=== PATIENT | male | born 1960 | race Hispanic/Latino ===

== ENCOUNTER → 2017-11-26 | Outpatient (CLI) | payer OTHER ==
[~2017-11-26] MED LIST: ASPIR 8181 MG PO; ATORVASTATIN CA10 MG PO; FARXIGA PO; GLYBURIDE-METF1 EAC1 PO; IBUPROFEN400 MG PO; JANUVIA100 MG PO; LISINOPRIL10 MG PO; NATEGLINIDE120 MG PO; NORCO 10-325 T1 EACH PO; PIOGLITAZONE HC45 MG PO
--- NOTE | 2017-11-26 17:12 | Diagnostic Imaging Report ---
Left knee MRI without contrast. History: Knee pain. Medial meniscus tear. Fall. Comparison: None. Technique: Multiplanar multi-sequence MRI of the knee without contrast. Findings: Medial compartment: There is a complex medial meniscus tear involving the posterior horn and body segments. The skull tissue is displaced to the periphery. There is advanced full-thickness articular cartilage loss in the medial compartment with underlying bone marrow edema and peripheral osteophytosis. The medial collateral ligament complex is intact. Lateral compartment: There is degeneration and fraying of the lateral meniscus. No lateral meniscus tear is seen. The lateral compartmental articular cartilage surfaces are thinned with regions of fraying and fissuring. There are small peripheral marginal osteophytes. The lateral collateral ligament complex is intact. Intercondylar notch: There is a chronic appearing partial tear of the anterior cruciate ligament with scarring. The posterior cruciate ligament is intact. Patellofemoral compartment: There is articular cartilage fraying and deep fissuring in the patellofemoral compartment with mild underlying bone marrow edema. Extensor mechanism: The quadriceps tendon is intact. There is distal patellar tendinosis with a chronic appearing avulsion type fracture at the anterior proximal tibia. There is associated bone marrow edema and adjacent soft tissue edema. This is best seen on sagittal series 3 image 16. Other findings: There is a joint effusion and synovitis. There is no subluxation or avascular necrosis. IMPRESSION: Complex medial meniscus tear with advanced degenerative arthrosis in the medial compartment of the knee. Distal patellar tendinosis with chronic appearing avulsion type fracture at the anterior proximal tibia with associated bone marrow edema and adjacent soft tissue edema. Articular cartilage fraying and deep fissuring in the patellofemoral compartment with mild underlying bone marrow edema. Chronic appearing partial tear of the anterior cruciate ligament with scarring. Signed by: Dr. Anibal Gillespie M.D. on 11/26/2017 5:08 PM
== END ==
LOC: MRI 14:46
PROVIDERS: ATTEND Specialist
DX: S83.242A Other tear of medial meniscus, current injury, left knee, initial encounter (principal)

== ENCOUNTER → 2017-12-22 | Day surgery (SDC) | payer OTHER ==
[2017-12-21 11:13] LABS: ANION GAP 14.3 mmol/L (8-16); BLOOD UREA NITROGEN 17 mg/dL (7-26); BUN/CREATININE RATIO 18 (6-25); CALCIUM 9.6 mg/dL (8.4-10.2); CARBON DIOXIDE 28 mmol/L (22-29); CHLORIDE 104 mmol/L (98-107); CREATININE, SERUM 0.92 mg/dL (0.72-1.25); EST GLOMERULAR FILTRATION RATE > 60 ML/MIN (60-); GLUCOSE 158 mg/dL (74-118); POTASSIUM 5.3 mmol/L (3.5-5.1); SODIUM 141 mmol/L (136-145)
[~2017-12-22] MED LIST changes: +ACETAMINOPHEN 1000 MG/100 ML IV ONE; +BUPIVACAINE HCL 0.5% 10ML MPF VIAL INJ ONE; +CEFAZOLIN SOD 1 GM VIAL ONE; +FENTANYL CITRATE/PF 100MCG/2 ML INJ ONE; +KETOROLAC TROMETHAMINE 30 MG/ML VIAL ONE; +LIDOCAINE HCL 2% LOCAL INJ 5 ML SDV VIAL INJ ONE; +MIDAZOLAM HCL 2 MG/2 ML VIAL ONE; +ONDANSETRON HCL INJ 2 MG/ML VIAL ONE; +PROPOFOL IV EMULSION 10 MG/ML 20 ML VIAL ONE; +SEVOFLURANE INHAL SOLN 250 ML PEN BTL ONE
--- OUTSIDE RECORDS SUMMARY | 2017-12-22 09:13 | XMS REPORT ---
Author Author [facility] Address Unknown Phone Unavailable Care Team Providers Care Needlemaker Name Role Phone REBECCA AVELAR Unavailable Unavailable Problems This patient has no known problems. Allergies, Adverse Reactions, Alerts This patient has no known allergies or adverse reactions. Medications This patient has no known medications. Results Test Description Test Time Test Comments Text Results Atomic Results Result Comments MRI KNEE LEFT WO [place] [address] Patient Name: KEVIN XIE MR #: [id number] : 1960 Age/Sex: 57/M Req #: [id number] Adm Physician: Ordered by: REBECCA AVELAR MD Report #: [id number] Location: MRI Room/Bed: Procedure: [id number] MRI/MRI KNEE LEFT WO Exam Date: 11/26/17 Exam Time: 1550 REPORT STATUS: Signed Left knee MRI without contrast. History : Knee pain. Medial meniscus tear. Fall. Comparison: None. Technique: Multiplanar multi-sequence MRI of the knee without contrast. Findings: Medial compartment: There is a complex medial meniscus tear involving the posterior horn and body segments. The skull tissue is displaced to the periphery. There is advanced full-thickness articular cartilage loss in the medial compartment with underlying bone marrow edema and peripheral osteophytosis. The medial collateral ligament complex is intact. Lateral compartment: There is degeneration and fraying of the lateral meniscus. No lateral meniscus tear is seen. The lateral compartmental articular cartilage surfaces are thinned with regions of fraying and fissuring. There are small peripheral marginal osteophytes. The lateral collateral ligament complex is intact. Intercondylar notch: There is a chronic appearing partial tear of the anterior cruciate ligament with scarring. The posterior cruciate ligament is intact. Patellofemoral compartment: There is articular cartilage fraying and deep fissuring in the patellofemoral compartment with mild underlying bone marrow edema. Extensor mechanism: The quadriceps tendon is intact. There is distal patellar tendinosis with a chronic appearing avulsion type fracture at the anterior proximal tibia. There is associated bone marrow edema and adjacent soft tissue edema. This is best seen on sagittal series 3 image 16. Other findings: There is a joint effusion and synovitis. There is no subluxation or avascular necrosis. IMPRESSION: Complex medial meniscus tear with advanced degenerative arthrosis in the medial compartment of the knee. Distal patellar tendinosis with chronic appearing avulsion type fracture at the anterior proximal tibia with associated bone marrow edema and adjacent soft tissue edema. Articular cartilage fraying and deep fissuring in the patellofemoral compartment with mild underlying bone marrow edema. Chronic appearing partial tear of the anterior cruciate ligament with scarring. Signed by: Dr. Anibal Gillespie M.D. on 11/26/2017 5:08 PM Dictated By: ANIBAL GILLESPIE MD, MD 07 Transcribed By: KINGSTON on 1707 COPY TO: REBECCA AVELAR MD
--- NOTE | 2017-12-22 19:30 | Operative Report ---
DATE OF PROCEDURE: December 22, 2017 PREOPERATIVE DIAGNOSES 1. Left knee medial meniscus tear. 2. Left knee degenerative joint disease of the knee. POSTOPERATIVE DIAGNOSES 1. Left knee medial meniscus tear. 2. Left knee degenerative joint disease of the knee. PROCEDURE PERFORMED: 1. Left knee exam under anesthesia. 2. Left knee arthroscopy. 3. Left knee partial medial meniscectomy. 4. Left knee chondroplasty of patella, the trochlea, medial femoral condyle, medial tibial plateau, lateral femoral condyle and lateral tibial plateau. [employer]IST: None. ANESTHESIA: General endotracheal anesthesia. IV FLUIDS: Per the anesthesia record. BRIEF DESCRIPTION OF THE PATIENT'S OPERATIVE PROCEDURE: Mr. Cano was taken to the operating room and placed in supine position on the operating table. Following the induction of general anesthesia as well as endotracheal intubation, the patient's left lower extremity was examined under anesthesia. He was found to have a mild effusion within the knee joint but an otherwise ligamentously stable knee. The patient's lower extremity was prepped and draped in standard surgical fashion. A standard 2 portal technique was used to provide this patient arthroscopic evaluation of the knee joint. Examination of the suprapatellar pouch and medial and lateral gutters found no evidence of loose bodies. There was, however, evidence of marked chondromalacia of the patellofemoral joint. The scope was advanced in the medial compartment and examination of the medial compartment revealed a torn and macerated medial meniscus. There was also chondromalacia of the articulating surfaces. A combination of biting forceps and a motorized shaver were used to resect the torn portion of the meniscus. Chondroplasties of the medial femoral condyle and medial tibial plateau were performed at this time. Scope was advanced into the intracondylar notch into the cruciate ligament and found to be intact.. Scope was advanced into the lateral compartment. There was chondromalacia of articulating surfaces. A chondroplasty of lateral femoral condyle lateral tibial plateau was performed at this time. Scope was then placed in suprapatellar pouch and chondroplasties of the patella and trochlea were performed. Knee was deflated of its sterile normal saline. The portal sites were closed using 4-0 nylon suture. The portal sites as well as the knee itself were injected with 1/2 percent Marcaine. Sterile dressings were applied and the patient was then awakened and taken to post anesthesia care unit in stable condition. Job#: [id number]
== END | disposition home or self-care (01) ==
LOC: OR 09:10
PROVIDERS: ATTEND Specialist
DX: S83.222A Peripheral tear of medial meniscus, current injury, left knee, initial encounter (principal); M17.12 Unilateral primary osteoarthritis, left knee; M22.42 Chondromalacia patellae, left knee; E11.9 Type 2 diabetes mellitus without complications; I10 Essential (primary) hypertension; E78.5 Hyperlipidemia, unspecified; X58.XXXA Exposure to other specified factors, initial encounter; Z01.810 Encounter for preprocedural cardiovascular examination; Z01.812 Encounter for preprocedural laboratory examination; Z79.82 Long term (current) use of aspirin; Z68.34 Body mass index [BMI] 34.0-34.9, adult
CPT/HCPCS: 29881; 36415 ×2; 80048; 82948; 84132; 93005; J0690; J1885; J2001; J2250; J2405

== ENCOUNTER → 2018-01-03 | Outpatient (CLI) | payer OTHER ==
[~2018-01-03] MED LIST changes: -ACETAMINOPHEN 1000 MG/100 ML IV ONE; -BUPIVACAINE HCL 0.5% 10ML MPF VIAL INJ ONE; -CEFAZOLIN SOD 1 GM VIAL ONE; -FENTANYL CITRATE/PF 100MCG/2 ML INJ ONE; -KETOROLAC TROMETHAMINE 30 MG/ML VIAL ONE; -LIDOCAINE HCL 2% LOCAL INJ 5 ML SDV VIAL INJ ONE; -MIDAZOLAM HCL 2 MG/2 ML VIAL ONE; -ONDANSETRON HCL INJ 2 MG/ML VIAL ONE; -PROPOFOL IV EMULSION 10 MG/ML 20 ML VIAL ONE; -SEVOFLURANE INHAL SOLN 250 ML PEN BTL ONE
== END ==
LOC: RAD 11:39
PROVIDERS: ATTEND Specialist
DX: M79.89 Other specified soft tissue disorders (principal)
CPT/HCPCS: 93971

== ENCOUNTER 2018-01-21 14:46 | Outpatient (RCR) | payer OTHER | END 2018-01-29 | LOC: PT 14:46 | PROVIDERS: ATTEND Specialist | DX: M17.12 Unilateral primary osteoarthritis, left knee (principal) | CPT/HCPCS: 97139 ==

== ENCOUNTER → 2022-05-05 | Day surgery (SDC) | payer OTHER ==
[~2022-05-05] MED LIST changes: +JARDIANCE10 MG PO; +OR PHACO EYE KIT ONE; +PREOP PHACO EYE KIT ONE
[2022-05-05 16:25] VITALS: BP 138/93
== END | disposition home or self-care (01) ==
LOC: OR 12:40
PROVIDERS: ATTEND Ophthalmology
DX: H25.12 Age-related nuclear cataract, left eye (principal); E11.9 Type 2 diabetes mellitus without complications; I10 Essential (primary) hypertension; E78.5 Hyperlipidemia, unspecified; E66.9 Obesity, unspecified; Z91.041 Radiographic dye allergy status; Z01.810 Encounter for preprocedural cardiovascular examination; Z01.812 Encounter for preprocedural laboratory examination; Z20.822 Contact with and (suspected) exposure to COVID-19; Z79.84 Long term (current) use of oral hypoglycemic drugs; Z79.899 Other long term (current) drug therapy; Z68.35 Body mass index [BMI] 35.0-35.9, adult
CPT/HCPCS: 0223U; 36415 ×2; 66984; 82948; 93005; V2632

== ENCOUNTER → 2022-05-19 | Day surgery (SDC) | payer OTHER ==
[~2022-05-19] MED LIST changes: +FENTANYL CITRATE/PF 100MCG/2 ML INJ ONE; +MIDAZOLAM HCL 2 MG/2 ML VIAL ONE
[2022-05-19 12:47] VITALS: BP 118/75
== END | disposition home or self-care (01) ==
LOC: OR 08:53
PROVIDERS: ATTEND Ophthalmology
DX: H25.11 Age-related nuclear cataract, right eye (principal); E11.9 Type 2 diabetes mellitus without complications; I10 Essential (primary) hypertension; R56.9 Unspecified convulsions; G51.0 Bell's palsy; E78.5 Hyperlipidemia, unspecified; E66.9 Obesity, unspecified; M19.90 Unspecified osteoarthritis, unspecified site; Z91.041 Radiographic dye allergy status; Z01.812 Encounter for preprocedural laboratory examination; Z20.822 Contact with and (suspected) exposure to COVID-19; Z79.84 Long term (current) use of oral hypoglycemic drugs; Z79.1 Long term (current) use of non-steroidal anti-inflammatories (NSAID); Z79.899 Other long term (current) drug therapy; Z68.35 Body mass index [BMI] 35.0-35.9, adult
CPT/HCPCS: 0223U; 36415 ×2; 66984; 82948; J2250; J3010